=== PATIENT | female | born 1990 | race Caucasian/White ===

== ENCOUNTER 2019-03-09 13:40 | Emergency (ER) | payer MEDICAID ==
[2019-03-09] MEDS ORDERED: IPRATROPIUM/ALBUTEROL 0.5-2.5 MG/3 ML AMPUL NEB ONE (14:26)
--- NOTE | 2019-03-09 14:27 | ER Document Report ---
ED Medical Screen (RME) - General Chief Complaint: Flank Pain Stated Complaint: FLANK PAIN, PAINFUL URINATION Time Seen by Provider: 03/09/19 14:15 Mode of Arrival: Ambulatory Information source: Patient Notes: Patient presents complaining of flank pain for the past 4 days. Patient reports some dysuria and hematuria. Patient does have some diarrhea as well. Patient states she developed shortness of breath yesterday. Patient denies any fever. Patient without any chest pain. I have greeted and performed a rapid initial assessment of this patient. A comprehensive ED assessment and evaluation of the patient, analysis of test results and completion of the medical decision making process will be conducted by additional ED providers. TRAVEL OUTSIDE OF THE [place] IN LAST 30 DAYS: No - Related Data Allergies/Adverse Reactions: No Known Allergies Allergy (Unverified 03/09/19 13:42) Past Medical History Renal/ Medical History: Denies: Hx Peritoneal Dialysis Physical Exam - Vital signs Vitals: Temp Pulse Resp BP Pulse Ox 99.7 F 91 14 123/66 100 03/09/19 13:46 03/09/19 13:46 03/09/19 13:46 03/09/19 13:46 03/09/19 13:46 - Back Back: CVA tenderness - Bilateral Course - Vital Signs Vital signs: Temp Pulse Resp BP Pulse Ox 99.7 F 91 14 123/66 100 03/09/19 13:46 03/09/19 13:46 03/09/19 13:46 03/09/19 13:46 03/09/19 13:46
--- NOTE | 2019-03-09 14:47 | RADIOLOGY REPORT (SQ) ---
EXAM DESCRIPTION: CHEST 2 VIEWS COMPLETED DATE/TIME: 03/09/2019 2:37 pm REASON FOR STUDY: sob COMPARISON: None. EXAM PARAMETERS: NUMBER OF VIEWS: two views TECHNIQUE: Digital Frontal and Lateral radiographic views of the chest acquired. RADIATION DOSE: NA LIMITATIONS: none FINDINGS: LUNGS AND PLEURA: No opacities, masses or pneumothorax. No pleural effusion. MEDIASTINUM AND HILAR STRUCTURES: No masses or contour abnormalities. HEART AND VASCULAR STRUCTURES: Heart normal size. No evidence for failure. BONES: No acute findings. HARDWARE: None in the chest. OTHER: No other significant finding. IMPRESSION: NO ACUTE RADIOGRAPHIC FINDING IN THE CHEST. TECHNICAL DOCUMENTATION: JOB ID: [id number] [employer]- All Rights Reserved Reading location - IP/workstation name: [email or web address]
[2019-03-09 15:11] LABS: ABSOLUTE NEUT (AUTO) 9.3 10^3/uL (1.7-8.2); BASOPHILS % (AUTO) 0.5 % (0-2); EOSINOPHILS % (AUTO) 0.6 % (0-6); HEMATOCRIT 35.7 % (36.0-47.0); HEMOGLOBIN 12.4 g/dL (12.0-15.5); LYMPHOCYTES % (AUTO) 10.7 % (13-45); MEAN CORPUSCULAR HGB CONC 34.6 g/dL (32.0-36.0); MEAN CORPUSCULAR VOLUME 90 fl (80-97); MONOCYTES % (AUTO) 9.8 % (3-13); PLATELET COUNT 246 10^3/uL (150-450); RED BLOOD COUNT 3.99 10^6/uL (3.72-5.28); RED CELL DISTRIBUTION WIDTH 12.5 % (11.5-14.0); SEGMENTED NEUTROPHILS % (AUTO) 78.4 % (42-78); TOTAL CELLS COUNTED % (AUTO) 100 %; WHITE BLOOD COUNT 11.9 10^3/uL (4.0-10.5)
[2019-03-09 15:12] LABS: ABSOLUTE BASOPHILS # (AUTO) 0.1 10^3/uL (0.0-0.2); ABSOLUTE EOSINOPHILS # (AUTO) 0.1 10^3/uL (0.0-0.6); ABSOLUTE LYMPHOCYTES (AUTO) 1.3 10^3/uL (0.5-4.7); ABSOLUTE MONOCYTES (AUTO) 1.2 10^3/uL (0.1-1.4)
[2019-03-09 15:20] LABS: APPEARANCE,URINE CLOUDY; BILIRUBIN,URINE NEGATIVE (NEGATIVE); COLOR,URINE YELLOW; GLUCOSE, URINE NEGATIVE (NEGATIVE); KETONES,URINE NEGATIVE (NEGATIVE); LEUKOCYTE ESTERASE,URINE LARGE (NEGATIVE); NITRITE,URINE POSITIVE (NEGATIVE); PROTEIN,URINE 100 mg/dL (NEGATIVE); URINE SPECIFIC GRAVITY 1.011; UROBILINOGEN,URINE NEGATIVE mg/dL (<2.0)
[2019-03-09 15:35] LABS: ALANINE AMINOTRANSFERASE 14 U/L (9-52); ALBUMIN 4.3 g/dL (3.5-5.0); ALKALINE PHOSPHATASE 56 U/L (38-126); ANION GAP 8 (5-19); ASPARTATE AMINO TRANSFERASE 15 U/L (14-36); BILIRUBIN,DIRECT 0.2 mg/dL (0.0-0.4); BILIRUBIN,TOTAL 1.2 mg/dL (0.2-1.3); BLOOD UREA NITROGEN 7 mg/dL (7-20); CALCIUM 9.6 mg/dL (8.4-10.2); CARBON DIOXIDE 29 mmol/L (22-30); CHLORIDE 103 mmol/L (98-107); GLUCOSE 89 mg/dL (75-110); POTASSIUM 4.1 mmol/L (3.6-5.0)
[2019-03-09] MEDS ORDERED: KETOROLAC TROMETHAMINE INJ/PF 30 MG/1 ML SDV IV ONE (15:44)
[2019-03-09] MEDS ORDERED: NORMAL SALINE 1000 ML 1,000 ML IV ONE (15:44)
[2019-03-09] MEDS ORDERED: CEFTRIAXONE 1 GM/D5W RTU 1 GM/50 ML RTUPB IV ONE (15:51)
[2019-03-09] MEDS ORDERED: ACETAMINOPHEN 325 MG TABLET PO ONE (15:57)
--- NOTE | 2019-03-09 16:01 | ER Document Report ---
ED GI/ - General Chief Complaint: Flank Pain Stated Complaint: FLANK PAIN, PAINFUL URINATION Time Seen by Provider: 03/09/19 14:15 Mode of Arrival: Ambulatory TRAVEL OUTSIDE OF THE [place] IN LAST 30 DAYS: No - HPI Notes: 03/09/19 15:54 Patient is a 28-year-old female who presents to the emergency department with the complaint of painful urination. She states that 4 days ago she developed pain with urination, blood in the urine and vaginal pressure when attempting to urinate. Patient states that over the past few days she has developed bilateral flank pain. Patient reports nausea but has been able to tolerate fluids by mouth. Patient has had 8 episodes of diarrhea over the past few days but none today. Patient denies vaginal bleeding or discharge. Patient reports her last menstrual period was 4 weeks ago. Patient states that yesterday she did state that she felt short of breath. Patient states that when she took a deep breath it worsened her back pain near her kidneys. Patient denies cough. - Related Data Allergies/Adverse Reactions: No Known Allergies Allergy (Unverified 03/09/19 13:42) Past Medical History - General Information source: Patient - Social History Smoking Status: Unknown if Ever Smoked Cigarette use (# per day): Yes Chew tobacco use (# tins/day): Yes - 1/2ppd-1ppd Frequency of alcohol use: None Drug Abuse: None Lives with: Spouse/Significant other Family History: None Patient has suicidal ideation: No Patient has homicidal ideation: No - Past Medical History Cardiac Medical History: Reports: None Pulmonary Medical History: Reports: None EENT Medical History: Reports: None Neurological Medical History: Reports: None Endocrine Medical History: Reports: None Renal/ Medical History: Reports: None. Denies: Hx Peritoneal Dialysis Malignancy Medical History: Reports: None GI Medical History: Reports: None Musculoskeletal Medical History: Reports None Skin Medical History: Reports None Psychiatric Medical History: Reports: None Traumatic Medical History: Reports: None Infectious Medical History: Reports: None Past Surgical History: Reports: Hx Section Review of Systems - Review of Systems Constitutional: See HPI EENT: No symptoms reported Cardiovascular: No symptoms reported Respiratory: See HPI Gastrointestinal: See HPI Genitourinary: No symptoms reported Female Genitourinary: See HPI Musculoskeletal: See HPI Skin: No symptoms reported Hematologic/Lymphatic: No symptoms reported Neurological/Psychological: No symptoms reported Physical Exam - Vital signs Vitals: Temp Pulse Resp BP Pulse Ox 99.7 F 91 14 123/66 100 03/09/19 13:46 03/09/19 13:46 03/09/19 13:46 03/09/19 13:46 03/09/19 13:46 Interpretation: Normal - Notes Notes: GENERAL: Well-appearing, well-nourished and in no acute distress. HEAD: Atraumatic, normocephalic. EYES: Pupils equal round and reactive to light, extraocular movements intact, sclera anicteric, conjunctiva are normal. ENT: Nares patent, oropharynx clear without exudates. Moist mucous membranes. NECK: Normal range of motion, supple without lymphadenopathy or JVD. LUNGS: Breath sounds clear to auscultation bilaterally and equal. No wheezes rales or rhonchi. HEART: Regular rate and rhythm without murmurs, rubs or gallops. ABDOMEN: Soft, generally tender throughout abdomen, normoactive bowel sounds. No guarding, no rebound. No masses appreciated. BACK: No cervical, thoracic, lumbar midline tenderness. No saddle anesthesia, normal distal neurovascular exam. Bilateral CVA tenderness. GENITOURINARY: Deferred. EXTREMITIES: Normal range of motion, no pitting or edema. No clubbing or cyanosis. NEUROLOGICAL: Cranial nerves II through XII grossly intact. Normal speech, normal gait. PSYCH: Normal mood, normal affect. SKIN: Warm, Dry, normal turgor, no rashes or lesions noted. Course - Re-evaluation Re-evalutation: 03/09/19 15:58 Upon initial assessment patient sitting upright on stretcher, multiple children and at bedside. Patient c/o bilateral flank pain. Urine does show pyuria and with her symptoms and physical assessment it appears she does have pyelonephritis. Will give IV fluids, first dose of antibiotic here, obtain urine culture and if patient can tolerate oral fluids discharge home. Patient and aware of plan and is in agreement. 03/09/19 17:44 Patient tolerating PO. Received IVF's and first dose of antibiotic. Patient wanting to be discharged. Nurse states patient is eating sonic and tolerating well. - Vital Signs Vital signs: Temp Pulse Resp BP Pulse Ox 98 F 64 12 100/53 L 99 03/09/19 17:58 03/09/19 17:58 03/09/19 17:58 03/09/19 17:58 03/09/19 17:58 - Laboratory Result Diagrams: 03/09/19 14:40 03/09/19 14:40 Laboratory results interpreted by me: 03/09/19 03/09/19 14:40 14:40 WBC 11.9 H Hct 35.7 L Seg Neutrophils % 78.4 H Lymphocytes % 10.7 L Absolute Neutrophils 9.3 H Urine Protein 100 H Urine Blood MODERATE H Urine Nitrite POSITIVE H Ur Leukocyte Esterase LARGE H 03/09/19 17:30 Large leuks with >182 WBC's and moderate blood. - Diagnostic Test Radiology reviewed: Image reviewed, Reports reviewed Radiology results interpreted by me: 03/09/19 Chest xray without acute abnormality or infiltrates. Discharge - Discharge Clinical Impression: Pyelonephritis, Nausea, Bilateral flank pain UTI (urinary tract infection) Qualifiers: Urinary tract infection type: acute pyelonephritis Qualified Code(s): N10 - Acute pyelonephritis Condition: Stable Disposition: HOME, SELF-CARE Instructions: Cephalexin ([facility]), Urinary Anesthetic Agent ([facility]), Urinary Tract Infection ([facility]) Additional Instructions: Today you were seen in the emergency department for bilateral flank pain and urinary discomfort. We have given you your first dose of antibiotics and will prescribe you Keflex. Keflex is an antibiotic for urinary tract infection that you will take twice a day for 10 days. This can change the color of your urine. You are also being prescribed Zofran for nausea, take as needed. Please return for worsening symptoms such as high fever, shaking, chills, weakness or dizziness, severe pain or inability to pass urine, severe abdominal pain. Please push fluids. Urinary Tract Infection Your evaluation indicates that you have a urinary tract infection. This is due to germs growing in the bladder. This is a common problem. This infection usually responds quickly to antibiotics. Your antibiotic should be taken exactly as prescribed. Drink plenty of fluids -- three to four quarts a day. Occasionally, a bladder anesthetic will be prescribed to help stop the feeling of urgency until the antibiotic has a chance to clear the infection. This may cause your urine to be dark orange. Certain urine infections require a culture. If the doctor obtained a culture, the results will be back in two days. You should call to see if a change in treatment is needed. A repeat urinalysis after you finish treatment is often recommended. The physician will let you know if further testing is required. Call the doctor if you develop fever, chills, flank pain, inability to urinate, or blood in the urine. Pyelonephritis Your evaluation shows evidence of pyelonephritis. This is an infection in the kidney. Typical symptoms are fever, pain in the flank, pain on urination, and frequent urination. Many cases of pyelonephritis can be treated at home. Hospital care may be necessary for patients who are very ill, or elderly or . Pyelonephritis is treated with antibiotics. Be sure to take all the medication as prescribed. Drink plenty of liquids (about three quarts per day). You may take acetaminophen for fever. You should feel significantly improved within two days. You should have a recheck of your urine in about one week to insure that the infection is gone. Return for a re-examination if your symptoms worsen in any way -- such as high fever, shaking chills, severe weakness or dizziness, severe pain, or inability to pass your urine. Prescriptions: Cephalexin Monohydrate [Keflex 500 mg Capsule] 500 mg PO BID 10 Days #20 capsule Ondansetron [Zofran Odt 4 mg Tablet] 1 tab PO Q4H PRN #15 tab.rapdis PRN Reason: For Nausea/Vomiting
[2019-03-09 17:59] VITALS: BP 100/53
== END 2019-03-09 18:25 | disposition home or self-care (01) ==
LOC: ER 13:40
DX: N10 Acute pyelonephritis (principal); R10.9 Unspecified abdominal pain; R11.0 Nausea; R31.9 Hematuria, unspecified; R06.02 Shortness of breath; Z72.0 Tobacco use
CPT/HCPCS: 94640; 99284; 96361; 96375; 96365; 36415; 87086; 84703; 85025; 87088; 80053; 81001; 87186; 71046; J3490; J1885; J7030; J0696; J7620

== ENCOUNTER 2019-11-01 12:34 | Emergency (ER) | payer MEDICAID ==
--- NOTE | 2019-11-01 14:24 | ER Document Report ---
ED Medical Screen (RME) - General Chief Complaint: Flu Symptoms Stated Complaint: SORE THROAT Time Seen by Provider: 11/01/19 14:18 Mode of Arrival: Ambulatory Information source: Patient Notes: 26-year-old female presented to ED for cough cold congestion fever runny nose yellow phlegm chest pain chills and fever. Her temperature is 102.8 her pulse is 122 her blood pressure is 116/63 and O2 sat is 97%.. She states she is nauseated but has not vomited. Is alert oriented respirations regular nonlabored chest are clear to auscultation I have greeted and performed a rapid initial assessment of this patient. A comprehensive ED assessment and evaluation of the patient, analysis of test results and completion of medical decision making process will be conducted by an additional ED providers. TRAVEL OUTSIDE OF THE [place] IN LAST 30 DAYS: No - Related Data Allergies/Adverse Reactions: No Known Allergies Allergy (Verified 11/01/19 14:18) Past Medical History Renal/ Medical History: Denies: Hx Peritoneal Dialysis Past Surgical History: Reports: Hx Section Physical Exam - Vital signs Vitals: Temp Pulse Resp BP Pulse Ox 102.9 F H 125 H 24 H 126/70 H 98 11/01/19 13:51 11/01/19 13:51 11/01/19 13:51 11/01/19 13:51 11/01/19 13:51 Course - Vital Signs Vital signs: Temp Pulse Resp BP Pulse Ox 102.9 F H 125 H 24 H 126/70 H 98 11/01/19 13:51 11/01/19 13:51 11/01/19 13:51 11/01/19 13:51 11/01/19 13:51
[2019-11-01] MEDS ORDERED: RINGERS SOLUTION,LACTATED 1,640 ML IV ONE (14:25)
[2019-11-01] MEDS ORDERED: ACETAMINOPHEN 325 MG TABLET PO ONE (14:25)
[2019-11-01] MEDS ORDERED: PIPERACILLIN/TAZOBACTAM 4.5 GM VIAL IV ONE (14:25)
--- NOTE | 2019-11-01 15:03 | RADIOLOGY REPORT (SQ) ---
EXAM DESCRIPTION: CHEST 2 VIEWS COMPLETED DATE/TIME: 11/01/2019 2:41 pm REASON FOR STUDY: fever cough COMPARISON: 03/09/2019 TECHNIQUE: Frontal and lateral radiographic views of the chest acquired. NUMBER OF VIEWS: Two view. LIMITATIONS: None. FINDINGS: LUNGS AND PLEURA: No opacities, masses or pneumothorax. No pleural effusion. MEDIASTINUM AND HILAR STRUCTURES: No masses or contour abnormalities. HEART AND VASCULAR STRUCTURES: Heart normal size. No evidence for failure. BONES: No acute findings. HARDWARE: None in the chest. OTHER: No other significant finding. IMPRESSION: NO SIGNIFICANT RADIOGRAPHIC FINDING IN THE CHEST. TECHNICAL DOCUMENTATION: JOB ID: [id number] [employer]- All Rights Reserved Reading location - IP/workstation name: [email or web address]
--- NOTE | 2019-11-01 15:14 | ER Document Report ---
ED General - General Chief Complaint: Fever Stated Complaint: SORE THROAT Time Seen by Provider: 11/01/19 14:18 Mode of Arrival: Ambulatory Notes: 29-year-old female presents with 24 hours of body aches fever cough chills headache sore throat and shortness of breath. This been ongoing for about 12 hours. Symptoms are severe. She has no neck pain or headacheno photophobia Smoker. TRAVEL OUTSIDE OF THE [place] IN LAST 30 DAYS: No - Related Data Allergies/Adverse Reactions: No Known Allergies Allergy (Verified 11/01/19 14:18) Past Medical History - General Information source: Patient - Social History Smoking Status: Current Every Day Smoker Smoking Education Provided: Yes - The patient ED visit today was directly related to their abuse of tobacco. Family History: None Patient has suicidal ideation: No Patient has homicidal ideation: No Renal/ Medical History: Denies: Hx Peritoneal Dialysis Past Surgical History: Reports: Hx Section Review of Systems - Review of Systems Notes: REVIEW OF SYSTEMS GEN: Fever chills lays ENT: Denies sore throat, nasal discharge, ear pain EYES: Denies blurry vision, eye pain, discharge CV: Denies chest pain, palpitations, edema RESP: Cough shortness of breath GI: Denies abdominal pain, nausea, vomiting, diarrhea MSK: Denies joint pain/swelling, edema, SKIN: Denies rash, skin lesions LYMPH: Denies swollen glands/lymph nodes NEURO: Denies headache, focal weakness or numbness, dizziness PSYCH: Denies depression, suicidal or homicidal ideation PHYSICAL EXAMINATION General: No acute distress, well-nourished Head: Atraumatic, normocephalic ENT: Mouth normal, oropharynx moist, no exudates or tonsillar enlargement Eyes: Conjunctiva normal, pupils equal, lids normal Neck: No JVD, supple, no guarding CVS: Tachycardic Resp: No resp distress, equal and normal breath sounds bilaterally GI: Nondistended, soft, no tenderness to palpation, no rebound or guarding Ext: No deformities, no edema, normal range of motion in upper and lower ext Back: No CVA or midline TTP Skin: No rash, warm Lymphatic: No lymphadeopathy noted Neuro: Awake, alert. Face symmetric. GCS 15. Physical Exam - Vital signs Vitals: Temp Pulse Resp BP Pulse Ox 102.9 F H 125 H 24 H 126/70 H 98 01/28/20 13:51 11/01/19 13:51 11/01/19 13:51 11/01/19 13:51 11/01/19 13:51 Course - Re-evaluation Re-evalutation: 11/01/19 21:25 Patient presents with respiratory symptoms severe tachycardia and fever concerning for sepsis versus flu Were going to a sepsis work-up, she was initially ordered to receive Zosyn in triage but I switch this to ceftriaxone given that if she has a bacterial infection is most likely from her urine She was given a full fluid bolus She was reassessed after Toradol and fluidsshclover is now complaining of a mild headache and mild neck pain but has no meningismus on my repeat exam and no photophobia Flu negative chest x-ray negative other work-up is completely negative. I told the patient she needs to be admitted for sepsis but she is refusing. We had a very long discussion after which she elected to leave AGAINST MEDICAL ADVICE. She signed the form. She was invited to return to the ED at any point for rep eat evaluation and will be called if her blood cultures are positive. I have discussed with the patient there likely diagnosis, aftercare plan, follow-up plans and my usual and customary return precautions. They verbalized understanding of this. - Vital Signs Vital signs: Temp Pulse Resp BP Pulse Ox 98.4 F 76 18 106/62 96 11/01/19 18:42 11/01/19 18:42 11/01/19 18:42 11/01/19 18:42 11/01/19 18:42 - Laboratory Result Diagrams: 11/01/19 15:22 11/01/19 15:22 Laboratory results interpreted by me: 11/01/19 11/01/19 11/01/19 15:22 15:22 15:22 Band Neutrophils % 2 L Monocytes % (Manual) 14 H Sodium 134.2 L BUN 6 L Creatinine 0.48 L Urine Protein 30 H Urine Ketones TRACE H Urine Urobilinogen 2.0 H Discharge - Discharge Clinical Impression: Sepsis Qualifiers: Sepsis type: sepsis due to unspecified organism Sepsis acute organ dysfunction status: unspecified Qualified Code(s): A41.9 - Sepsis, unspecified organism Condition: Fair Disposition: AGAINST MEDICAL ADVICE Additional Instructions: You have elected leave the hospital AGAINST MEDICAL ADVICE. You have refused a lumbar puncture. As we discussed I am not clear on what is making you sick and further testing is needed. If you change your mind may return to the emergency room at any point.
[2019-11-01 15:47] LABS: APPEARANCE,URINE SLIGHTLY-CLOUDY; BILIRUBIN,URINE NEGATIVE (NEGATIVE); COLOR,URINE YELLOW; GLUCOSE, URINE NEGATIVE (NEGATIVE); KETONES,URINE TRACE mg/dL (NEGATIVE); PROTEIN,URINE 30 mg/dL (NEGATIVE); URINE SPECIFIC GRAVITY 1.021
[2019-11-01 15:48] LABS: HEMATOCRIT 39.1 % (36.0-47.0); HEMOGLOBIN 13.6 g/dL (12.0-15.5); MEAN CORPUSCULAR HGB CONC 34.9 g/dL (32.0-36.0); MEAN CORPUSCULAR VOLUME 89 fl (80-97); PLATELET COUNT 168 10^3/uL (150-450); RED CELL DISTRIBUTION WIDTH 12.7 % (11.5-14.0); WHITE BLOOD COUNT 4.5 10^3/uL (4.0-10.5)
[2019-11-01 15:51] LABS: INTERNATIONAL RATION (INR) 1.17; PROTHROMBIN TIME 14.9 SEC (11.4-15.4)
[2019-11-01 16:05] LABS: ALBUMIN 4.5 g/dL (3.5-5.0); ALKALINE PHOSPHATASE 42 U/L (38-126); ANION GAP 9 (5-19); ASPARTATE AMINO TRANSFERASE 25 U/L (14-36); BILIRUBIN,TOTAL 0.9 mg/dL (0.2-1.3); BLOOD UREA NITROGEN 6 mg/dL (7-20); CALCIUM 8.9 mg/dL (8.4-10.2); CARBON DIOXIDE 25 mmol/L (22-30); CHLORIDE 100 mmol/L (98-107); GLUCOSE 95 mg/dL (75-110); POTASSIUM 4.2 mmol/L (3.6-5.0); TOTAL PROTEIN 7.3 g/dL (6.3-8.2)
[2019-11-01 16:11] LABS: A TYPE INFLUENZA AG NEGATIVE (NEGATIVE); B INFLUENZA AG NEGATIVE (NEGATIVE)
[2019-11-01] MEDS ORDERED: CEFTRIAXONE 1 GM/D5W RTU 1 GM/50 ML RTUPB IV ONE (16:14)
[2019-11-01] MEDS ORDERED: KETOROLAC TROMETHAMINE INJ/PF 30 MG/1 ML SDV IV ONE (16:19)
[2019-11-01 16:35] LABS: ABSOLUTE LYMPHOCYTES# (MANUAL) 0.7 10^3/uL (0.5-4.7); ABSOLUTE MONOCYTES # (MANUAL) 0.6 10^3/uL (0.1-1.4); BAND NEUTROPHILS % (MANUAL) 2 % (3-5); BASOPHILS % (MANUAL) 0 % (0-2); EOSINOPHILS % (MANUAL) 0 % (0-6); LYMPHOCYTES % (MANUAL) 15 % (13-45); MONOCYTES % (MANUAL) 14 % (3-13); PLATELET COMMENT ADEQUATE; RBC MORPHOLOGY COMMENT NORMO-CYTIC/CHROMIC; SEGMENTED NEUTROPHILS % (MAN) 69 % (42-78); TOTAL CELLS COUNTED 100
[2019-11-01 18:16] LABS: VENOUS BLOOD BASE EXCESS -1.7 mmol/L; VENOUS BLOOD HCO3 22.9 mmol/L (20-32); VENOUS BLOOD PCO2 38.6 mmHg (35-63); VENOUS BLOOD PH 7.39 (7.30-7.42)
[2019-11-01 18:26] VITALS: BP 106/62
== END 2019-11-01 18:42 | disposition left against medical advice (07) ==
LOC: ER 12:34
DX: A41.9 Sepsis, unspecified organism (principal); R50.9 Fever, unspecified; J02.9 Acute pharyngitis, unspecified; M79.10 Myalgia, unspecified site; R05 Cough; R51 Headache; R00.0 Tachycardia, unspecified; R06.02 Shortness of breath; F17.200 Nicotine dependence, unspecified, uncomplicated
CPT/HCPCS: 99283; 96361; 96375; 96365; 36415; 87040; 83605; 85025; 85610; 80053; 81001; 82803; 87804; 71046; J3490; J1885; J7120; J0696